=== PATIENT | male | born 1975 | race American Indian/Alaskan Native ===

== ENCOUNTER 2020-08-14 15:39 | Emergency (ER) | payer SELFPAY ==
[2020-08-14 16:56] LABS: Basophils % (Auto) 0.4 % (0.0-1.8); Eosinophils # (Auto) 0.1 K/mm3 (0.0-0.4); Eosinophils % (Auto) 0.6 % (0.0-4.3); Hematocrit 47.2 % (35.5-45.6); Hemoglobin 15.7 gm/dl (11.8-15.2); Lymphocytes # (Auto) 1.3 K/mm3 (1.2-5.4); Lymphocytes % (Auto) 11.6 % (13.4-35.0); Mean Corpuscular HGB Conc 33 % (32-34); Mean Corpuscular Volume 83 fl (84-94); Monocytes # (Auto) 0.8 K/mm3 (0.0-0.8); Platelet Count 251 K/mm3 (140-440); Red Blood Count 5.69 M/mm3 (3.65-5.03); Red Cell Distribution Width 14.6 % (13.2-15.2)
[2020-08-14 17:07] LABS: Calcium 10.1 mg/dL (8.4-10.2)
--- NOTE | 2020-08-14 17:34 | Event Note ---
ED Screening Note Date of service: 08/14/20 Time: 17:32 ED Screening Note: 45-year-old male patient with history of hypertension and polysubstance abuse presents to the emergency department with complaints of syncope. Patient states he used drugs at a hotel yesterday. Today, he walked approximately 5 miles. He stopped at a gas station and reportedly lost consciousness. He is unsure how long he was unconscious. He states he has not had anything to eat or drink since lunchtime yesterday. Tachycardic in triage. General: Awake, appropriately interactive. Appears disheveled. Neck: Supple. Full range of motion intact. Cardiovascular: Normal peripheral perfusion. Pulmonary: No respiratory distress. Patient is speaking normally without use of accessory muscles. Skin: No apparent rashes or lesions. Neurological: No facial asymmetry. Speech is clear. Follows commands. Patient is alert and oriented. Musculoskeletal: Moves all four extremities spontaneously with normal range of motion. Psych: Cooperative. Appropriate mood and affect. Labs ordered by manager of pharmacy prior to medical screening exam. I have greeted and performed a focused rapid initial assessment of this patient. A comprehensive ED assessment and evaluation of the patient, analysis of all test results, and completion of the medical decision-making process will be conducted by additional ED providers. This initial assessment/diagnostic orders/clinical plan/treatment(s) is/are subject to change based on patients health status, clinical progression and re-assessment. Further treatment and workup at subsequent clinical provider's discretion. Patient/guardian urged not to elope from the ED as their condition may be serious if not clinically assessed and managed.
--- NOTE | 2020-08-14 18:08 | XRay Report ---
CHEST PA AND LATERAL VIEWS INDICATION: syncope. COMPARISON: None. FINDINGS: Support devices: None. Heart: Within normal limits. Lungs/Pleura: No acute pulmonary or pleural findings. Accessory azygos fissure in the medial right up per lung is incidentally noted. There are a few punctate calcified granulomas. IMPRESSION: 1. No acute findings. Signer Name: Ross Taylor MD Signed: 08/14/2020 6:04 PM Workstation Name: [id number]
--- NOTE | 2020-08-14 21:24 | Emergency Department Report ---
ED Syncope HPI - General Chief Complaint: Syncope Stated Complaint: FAINT Time Seen by Provider: 08/14/20 21:08 - History of Present Illness Initial Comments: 45-year-old male, history of hypertension, presents to ED following a syncopal episode earlier today. Patient states last night, his told him that she wanted a divorce. Patient states he is staying at a rehab facility, however instead of going back to the facility, he rented a motel room for the night. Patient states he drank alcohol, smoke marijuana, and did some cocaine. Patient states he checked out at noon today. Without having anything to eat or drink ( states last meal was yesterday afternoon), he proceeded to walk 6 or 7 miles to get to his friend's job. She states he was feeling dehydrated, weak and dizzy. He states he stopped at a [employer] gas station to rest, and a woman brought him a cup of ice. Patient states he poured this on top of his head. He states he stood up to walk a little further down the street where there was a shaded area, [facility] er after standing up he passed out. Patient denies any headache, chest pain, shortness of breath. Timing/Prior Episodes: single episode today Precipitating Factors: Positive: lightheadedness Context: standing Loss of Consciousness: unsure Current Symptoms: back to normal. denies: chest pain, dizziness, headache, lightheadedness, nausea - Related Data Allergies/Adverse Reactions: Allergies No Known Allergies Allergy (Unverified 08/14/20 16:03) ED Review of Systems ROS: Stated complaint: FAINT Other details as noted in HPI Comment: All other systems reviewed and negative Constitutional: denies: fever Respiratory: cough. denies: shortness of breath Cardiovascular: denies: chest pain Gastrointestinal: denies: nausea, vomiting Neurological: denies: headache ED Past Medical Hx - Past Medical History Previous Medical History?: Yes Hx Hypertension: Yes - Surgical History Past Surgical History?: No - Social History Smoking Status: Current Every Day Smoker Substance Use Type: Alcohol, Marijuana ED Physical Exam - General Limitations: No Limitations General appearance: alert, in no apparent distress - Eye Eye exam: Present: normal appearance, EOMI - ENT ENT exam: Present: mucous membranes moist - Neck Neck exam: Present: normal inspection - Respiratory Respiratory exam: Present: normal lung sounds bilaterally. Absent: respiratory distress - Cardiovascular Cardiovascular Exam: Present: normal rhythm, tachycardia - GI/Abdominal GI/Abdominal exam: Present: soft. Absent: distended, tenderness - Extremities Exam Extremities exam: Present: other (Some abrasions to fingers) - Neurological Exam Neurological exam: Present: alert, oriented X3, CN II-XII intact. Absent: motor sensory deficit - Psychiatric Psychiatric exam: Present: normal affect, normal mood - Skin Skin exam: Present: warm, dry, intact, normal color ED Course Vital Signs 08/14/20 08/14/20 08/14/20 16:09 19:00 22:06 Temperature 98.7 F Pulse Rate 120 H 110 H Respiratory 20 19 Rate Blood Pressure 124/89 Blood Pressure [Left] O2 Sat by Pulse 95 96 Oximetry 08/14/20 23:46 Temperature Pulse Rate 89 Respiratory 19 Rate Blood Pressure Blood Pressure 140/85 [Left] O2 Sat by Pulse 99 Oximetry ED Medical Decision Making - Lab Data Result diagrams: 08/14/20 16:35 08/14/20 16:35 - EKG Data -: EKG Interpreted by Tx EKG shows normal: sinus rhythm, axis, intervals, QRS complexes, ST-T waves Rate: tachycardia (rate 110) - EKG Data Interpretation: no acute changes - Radiology Data Radiology results: report reviewed, image reviewed - Medical Decision Making Syncopal episode after using cocaine, marijuana, alcohol. Likely secondary to dehydration. Patient walking in the hot sun anything to eat or drink. EKG unremarkable. Patient orthostatic, so 1 L bolus of IV fluids given. Labs unremarkable. Patient will be discharged at this time. Outpatient follow-up advised, return precautions given. - Differential Diagnosis Substance abuse, dehydration, rhabdomyolysis Critical care attestation.: If time is entered above; I have spent that time in minutes in the direct care of this critically ill patient, excluding procedure time. ED Disposition Clinical Impression: Dehydration, Syncope, Substance abuse Disposition: DC-01 TO HOME OR SELFCARE Is pt being admited?: No Condition: Stable Instructions: Dehydration, Adult, [id number], Rehydration, Adult, Syncope, [id number], Syncope (ED) Referrals: PRIMARY CARE, [Primary Care Provider] - 3-5 Days [facility] [Provider Group] - 3-5 Days Time of Disposition: 23:23
[2020-08-14] MEDS ORDERED: SODIUM CHLORIDE 0.9% 1000 ML 1,000 ML IV ONE (21:25)
[2020-08-14 23:47] VITALS: BP 140/85
--- NOTE | 2020-08-16 10:37 | Electrocardiograph Report ---
[facility] Test Date: 2020-08-14 Test Time: 16:19:04 Pat Name: MANDIE DAIGLE Department: Room: Gender: M Social Sciences Chair: GINGER MENCHACA : 1975 Requested By: AMY ENGLISH Order Number: [id number] Reading MD: Jg Malcolm Measurements Intervals [place] Rate: 110 P: 68 [place]: 145 QRS: 107 QRSD: 96 T: 51 QT: 336 QTc: 456 Interpretive Statements Sinus tachycardia Probable left atrial enlargement ST elevation suggests acute pericarditis No previous ECG available for comparison Electronically Signed On 08-16-2020 10:37:12 EDT by Jg Malcolm
== END 2020-08-15 00:01 | disposition home or self-care (01) ==
LOC: ED 15:39
DX: E86.0 Dehydration (principal); R55 Syncope and collapse; F19.10 Other psychoactive substance abuse, uncomplicated; I10 Essential (primary) hypertension; F17.200 Nicotine dependence, unspecified, uncomplicated; F12.90 Cannabis use, unspecified, uncomplicated; Z72.89 Other problems related to lifestyle
CPT/HCPCS: 36415; 71046; 80048; 82550; 83735; 84484; 85025; 93005; 96360; 99284; J7030; 80320; G0480